=== PATIENT | female | born 1955 | race Caucasian/White ===

== ENCOUNTER 2024-07-21 15:45 | Emergency (ER) | payer OTHER, MEDICARE, SELFPAY ==
[2024-07-21 16:07] VITALS: BP 95/52; PULSE 69; RESP 12; TEMP 36.5; O2SAT 97; BMI 26.1
--- NOTE | 2024-07-21 16:13 | DI.RAD.S_ITS ---
PROCEDURE: XR CHEST 1V INDICATIONS: Chest Pain TECHNIQUE: One view of the chest was acquired. COMPARISON: None. FINDINGS: Surgical changes and devices: Right chest wall surgical clips. Lungs and pleura: Lungs are clear. No pleural effusions or pneumothorax. Mediastinum: Mediastinal contours appear normal. Heart size is normal. Bones and chest wall: No suspicious bony lesions. Overlying soft tissues appear unremarkable. IMPRESSION: No acute cardiopulmonary abnormality is seen. Dictated by: Cam Bergeron M.D. on 07/21/2024 at 17:01 Approved by: Cam Bergeron M.D. on 07/21/2024 at 17:02
--- NOTE | 2024-07-21 16:20 | EKG_ITS ---
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
[2024-07-21 16:57] LABS: Add Manual Diff / Slide Review NO; Basophils Absolute Auto 0 /uL (0-100); Basophils Percent Auto 0.5 % (0-2); Eosinophils Absolute Auto 100 /uL (0-450); Hemoglobin 13.3 g/dL (12.0-16.0); Lymphocytes Absolute Auto 1600 /uL (1100-4500); Lymphocytes Percent Auto 26.3 % (25-40); Mean Corpuscular HGB Conc 33.3 % (30-36); Mean Corpuscular Hemoglobin 29.6 PG (26-34); Monocytes Absolute Auto 400 /uL (0-900); Monocytes Percent Auto 6.3 % (3-14); Neutrophils Absolute Auto 4000 /uL (1500-7000); Neutrophils Percent Auto 64.9 % (50-75); Platelet Count 189 X10^3/uL (150-400); Red Cell Distribution Width 13.6 % (11.6-14.8); White Blood Cell Count 6.2 X10^3/uL (4.5-11.0)
[2024-07-21 17:06] LABS: INR 1.1 (0.9-1.3); Prothrombin Time 12.2 SECONDS (9.4-12.5)
[2024-07-21 17:09] LABS: PTT Partial Thromboplastin Tim 32 SECONDS (25.1-36.5)
[2024-07-21 17:11] LABS: Alanine Aminotransferase 28 IU/L (<35); Albumin 4.8 g/dL (3.5-5.0); Albumin Globulin Ratio 1.5 (1.0-2.8); Alkaline Phosphatase 60 U/L (38-126); Aspartate Aminotransferase 33 IU/L (14-36); BUN Creatinine Ratio 14.2 (6-22); Bilirubin Total 0.7 mg/dL (0.2-1.3); Blood Urea Nitrogen 16 mg/dL (7-17); Calcium 10.5 mg/dL (8.4-10.2); Carbon Dioxide 26 mmol/L (22-32); Chloride 103 mmol/L (98-107); Creatine Kinase 118 U/L (30-135); Estimated Glomerular Filt Rate 54 mL/min (>60); Globulin 3.2 g/dL (1.7-4.1); Glucose 162 mg/dL (70-99); HEMOLYSIS < 15 (0-50); Lactate (Lactic Acid) 3.6 mmol/L (0.7-2.1); Lipase 94 U/L (23-300); Magnesium 1.8 mg/dL (1.6-2.3); Potassium 4.3 mmol/L (3.4-5.1); Sodium 142 mmol/L (137-145)
--- NOTE | 2024-07-21 17:12 | ED.SYNCOPE ---
HPI - Syncope General Chief Complaint: Syncope Stated Complaint: Passed out while daughter giving (BC) Time Seen by Provider: 07/21/24 16:47 Source: patient Mode of arrival: Wheelchair Limitations: no limitations History of Present Illness HPI narrative: Patient here with . Brought down here from labor and delivery. Daughter is here for birthing. Patient and are visiting from [place]. Patient recalls the event. She states she was standing in the room and she feel nauseous and dizzy. She sat down on a balance ball and slowly slumped to the ground. Denies any injury. was there and responded. Nursing staff responded immediately as well. Blood sugar 117. Patient is diabetic and has history of hypertension. She denies denies any pre event or post event headache chest pain palpitations back pain abdominal pain numbness tingling or weakness slurred speech. Patient states her family doctor in [place] doubled her losartan from 25 mg to 50 mg a week ago. She is uncertain why he did that because she thought her blood pressure was fine. Blood pressure noted here is lower than her baseline. She was informed by her primary care if blood pressure is below 100, then stop that new dose. Currently blood pressure 95/52 pulse 69 Review of Systems Review of Systems Narrative: GENERAL: Negative chills, fatigue, malaise, fever, sweats. HEENT: Negative sinus pain, ear pain, sore throat RESPIRATORY: Negative dyspnea, cough CARDIOVASCULAR: Negative chest pain, palpitations, positive syncope GASTROINTESTINAL: Negative vomiting, nausea, abdominal pain : Negative dysuria, frequency, hematuria MUSCULOSKELETAL: Negative muscle or bony pain SKIN: Negative rash, skin lesions NEUROLOGIC: Negative weakness, numbness, positive dizziness ROS Unobtainable: All systems reviewed & are unremarkable except as noted in HPI and below Patient History Social History Smoking Status: Never smoker Smoking Status: Never smoker Exam Narrative Exam Narrative: GENERAL: in no distress, not toxic not dyspneic HEAD: Normocephalic. EYES: Pupils equal round ENT: Mucous membranes moist. NECK: Trachea midline. CARDIOVASCULAR: Regular rate and rhythm RESPIRATORY: Clear to auscultation. Breath sounds equal bilaterally. No wheezes, rales, or rhonchi. GASTROINTESTINAL: Abdomen soft, non-tender EXTREMITIES: No gross deformities. BACK: No flank tenderness. NEURO: AOx4. Clear speech SKIN: Warm and dry PSYCH: Not anxious, is cooperative Initial Vital Signs Initial Vital Signs: Vital Signs Temperature 97.7 F 07/21/24 16:07 Pulse Rate 69 07/21/24 16:07 Respiratory Rate 12 07/21/24 16:07 Blood Pressure 95/52 L 07/21/24 16:07 Pulse Oximetry 97 07/21/24 16:07 Oxygen Delivery Method Room Air 07/21/24 16:07 Course Orders Ordered: Discontinued Medications Aspirin (Aspirin 81 Mg Chew Tab) 324 mg PO NOW ONE Stop: 07/21/24 16:13 Last Admin: 07/21/24 17:42 Dose: Not Given Documented By: SUMMER Sodium Chloride (Normal Saline 0.9%) 1,000 mls @ 1,000 mls/hr IV BOLUS ONE Stop: 07/21/24 18:15 Last Admin: 07/21/24 17:34 Dose: 1,000 mls/hr Documented By: SUMMER Vital Signs Vital signs: Vital Signs - 8 hr 07/21/24 16:07 07/21/24 17:23 Temperature 97.7 F Pulse Rate 69 Pulse Rate [Orthostatic Lying] 76 Pulse Rate [Orthostatic Sitting] 90 Pulse Rate [Orthostatic Standing] 93 H Respiratory Rate 12 Blood Pressure 95/52 L Blood Pressure [Orthostatic Lying] 111/59 L Blood Pressure [Orthostatic Sitting] 116/55 L Blood Pressure [Orthostatic Standing] 117/56 L Pulse Oximetry 97 Oxygen Delivery Method Room Air MDM - Syncope Lab Data 07/21/24 16:45 07/21/24 16:45 Labs: Lab Results 07/21/24 Range/Units 16:45 WBC 6.2 (4.5-11.0) X10^3/uL RBC 4.50 (4.0-5.2) X10^6/uL Hgb 13.3 (12.0-16.0) g/dL Hct 40.0 (36-46) % MCV 89.0 (80-100) fL MCH 29.6 (26-34) PG MCHC 33.3 (30-36) % RDW 13.6 (11.6-14.8) % Plt Count 189 (150-400) X10^3/uL Neut % (Auto) 64.9 (50-75) % Lymph % (Auto) 26.3 (25-40) % [place] % (Auto) 6.3 (3-14) % Eos % (Auto) 2.0 (2-4) % Baso % (Auto) 0.5 (0-2) % Neut # (Auto) 4000 (1931-0932) /uL Lymph # (Auto) 1600 (6647-5482) /uL [place] # (Auto) 400 (0-900) /uL Eos # (Auto) 100 (0-450) /uL Baso # (Auto) 0 (0-100) /uL PT 12.2 (9.4-12.5) SECONDS INR 1.1 (0.9-1.3) APTT 32 (25.1-36.5) SECONDS Sodium 142 (137-145) mmol/L Potassium 4.3 (3.4-5.1) mmol/L Chloride 103 (98-107) mmol/L Carbon Dioxide 26 (22-32) mmol/L BUN 16 (7-17) mg/dL Creatinine 1.13 H (0.52-1.04) mg/dL Estimated GFR 54 L (>60) mL/min BUN/Creatinine Ratio 14.2 (6-22) Glucose 162 H (70-99) mg/dL Lactate 3.6 H (0.7-2.1) mmol/L Calcium 10.5 H (8.4-10.2) mg/dL Magnesium 1.8 (1.6-2.3) mg/dL Total Bilirubin 0.7 (0.2-1.3) mg/dL AST 33 (14-36) IU/L ALT 28 (<35) IU/L Alkaline Phosphatase 60 (38-126) U/L Total Creatine Kinase 118 (30-135) U/L Troponin I < 0.012 (0.01-0.034) ng/mL NT-Pro-B Natriuret Pep 45 (<125) pg/mL Total Protein 8.0 (6.3-8.2) g/dL Albumin 4.8 (3.5-5.0) g/dL Globulin 3.2 (1.7-4.1) g/dL Albumin/Globulin Ratio 1.5 (1.0-2.8) Lipase 94 (23-300) U/L Imaging Data Chest x-ray: Radiologist's Impression: [address] [address] XRay Report Signed Patient: Daquan Villegas MR#: [id number] : 1955 Acct:[id number] Age/Sex: 68 / F Date of Service: 07/21/24 Loc: ED Accession Number: [id number] Procedure: XR chest 1V Ordering Provider: Rigoberto Hernandez MD PROCEDURE: XR CHEST 1V INDICATIONS: Chest Pain TECHNIQUE: One view of the chest was acquired. COMPARISON: None. FINDINGS: Surgical changes and devices: Right chest wall surgical clips. Lungs and pleura: Lungs are clear. No pleural effusions or pneumothorax. Mediastinum: Mediastinal contours appear normal. Heart size is normal. Bones and chest wall: No suspicious bony lesions. Overlying soft tissues appear unremarkable. IMPRESSION: No acute cardiopulmonary abnormality is seen. Dictated by: Cam Bergeron M.D. on 07/21/2024 at 17:01 Approved by: Cam Bergeron M.D. on 07/21/2024 at 17:02 [facility] Narrative Medical decision making narrative: Patient here with . Brought down here from labor and delivery. Daughter is here for birthing. Patient and are visiting from [place]. Patient recalls the event. She states she was standing in the room and she feel nauseous and dizzy. She sat down on a balance ball and slowly slumped to the ground. Denies any injury. was there and responded. Nursing staff responded immediately as well. Blood sugar 117. Patient is diabetic and has history of hypertension. She denies denies any pre event or post event headache chest pain palpitations back pain abdominal pain numbness tingling or weakness slurred speech. Patient states her family doctor in [place] doubled her losartan from 25 mg to 50 mg a week ago. She is uncertain why he did that because she thought her blood pressure was fine. Blood pressure noted here is lower than her baseline. She was informed by her primary care if blood pressure is below 100, then stop that new dose. Currently blood pressure 95/52 pulse 69 After history and exam, CBC CMP troponin EKG chest x-ray orthostatics, normal saline, history and exam is reassuring, no CT head indicated at this time. Likely vasovagal/hypotension MDM Medical records reviewed: No recent visit for this complaint Differential considered: Includes but not limited to vasovagal syncope medication overdose Lab Test results independently reviewed as above. Pertinent findings: WBC 6.2 hemoglobin 13.3 sodium 142 potassium 4.3 BUN 16 creatinine 1.13 GFR 54 glucose 162 lactate 3.6, lactic acid is nonspecific at this time. No seizure activity. No recent illness. No leukocytosis or fever, troponin less than 0.012 BNP 45 Independently reviewed EKG normal sinus rhythm normal EKG rate 67 Imaging studies independently reviewed: Chest x-ray no acute finding Consultations: None indicated at this time Re-evaluations: 6:11 p.m.. Patient feels much better after IV fluids. Blood pressure has improved. Blood pressure 117/56 pulse 93. Reviewed results with patient and . She does agree she has not been drinking as much fluid as she should be. She has had a lot of the excitement and anxiety since coming here for the of the grandchild. Return precautions reviewed. She does understand she will go back to her old dosing of blood pressure medication. She will contact her family doctor as well. Return precautions reviewed and she desires discharge home. Discussion: Appropriate for discharge home. Exam is reassuring. Patient's symptoms likely due recent blood pressure dosing increase causing hypotension and in combination of decreased oral hydration causing her symptoms. Return precautions reviewed. She desires discharge home. Diagnosis: Vasovagal syncope Discharge Plan Departure Patient Disposition: Home Clinical Impression: Vasovagal syncope Instructions: DI for Syncope in Adults (Fainting) Activity Restrictions/Additional Instructions: Your exam and laboratory studies are reassuring. Your EKG is reassuring. Your symptoms are likely due to low blood pressure from your recent increase in your blood pressure medication. Please do not take your blood pressure medication tonight. Please resume your previous dosing of blood pressure medication tomorrow night. Call your family doctor about these changes. Return if worse if any questions or concerns. Keep well hydrated. Your laboratory studies did show some slight dehydration. Stand Alone Forms: Patient Portal/API/Survey
[2024-07-21 17:22] LABS: NT-proBNP (BNP-Adult 18+) 45 pg/mL (<125); Troponin I < 0.012 ng/mL (0.01-0.034)
[2024-07-21 17:23] VITALS: BP 111/59; BP 116/55; BP 117/56; PULSE 76; PULSE 90; PULSE 93
--- NOTE | 2024-07-21 17:24 | PC.NURSE ---
BPs taken 1 minute apart
[2024-07-21] MEDS: SODIUM CHLORIDE 0.9% 1,000 ML 1000 ML IV (17:34)
[2024-07-21 18:17] VITALS: BP 112/67; BP 123/68; PULSE 83; PULSE 94; RESP 17; O2SAT 100; O2SAT 99
[2024-07-21 18:28] LABS: Reflexed Lactate in 2 Hours Y
== END 2024-07-21 18:16 | disposition home or self-care (01) ==
PROVIDERS: Emergency Provider Emergency Medicine
DX: R55 Syncope and collapse (principal); R11.0 Nausea; R42 Dizziness and giddiness
CPT/HCPCS: 36415; 71045; 80053; 82550; 83605; 83690; 83735; 83880; 84484; 85025; 85610; 85730; 93005; 93010; 99284